=== PATIENT | female | born 1960 | race Two or more races ===

== ENCOUNTER 2024-05-28 07:30 | Day surgery (SDC) | payer MEDICAID, SELFPAY ==
[2024-05-28] VITALS (12 sets, daily range): BP systolic 136–198; BP diastolic 51–91; PULSE 61–80; RESP 15–20; TEMP 36.5–36.6; O2SAT 92–100; BMI 35.2
--- NOTE | 2024-05-28 09:43 | SUR.PHASEII ---
0943: Pt. AAOx4, vitals stable, breathing unlabored, no complaint of pain or nausea, no dressing in place, no active bleed noted, report received from Cira MCCLENDON.
--- NOTE | 2024-05-28 10:14 | SUR.PHASEII ---
1014: Pt. AAOx4, vitals stable, breathing unlabored, no complaint of pain or nausea, no dressing in place, no active bleed noted, pt. able to pass gas, pt. tolerated sips of water well, gave discharge instructions to the pt. and her ride using die repairer trimmer dies both verbalized understanding and had no further questions. Pt. left with all personal belongings.
== END 2024-05-28 10:14 | disposition home or self-care (01) ==
PROVIDERS: PCP Family Medicine; Referring Provider Surgery; Visit Provider Surgery
PROC: 0DJD8ZZ Inspection of Lower Intestinal Tract, Via Natural or Artificial Opening Endoscopic (ICD-10-PCS; CPT 45378; principal; 2024-05-28 12:15)
DX: Z12.11 Encounter for screening for malignant neoplasm of colon (principal)
CPT/HCPCS: 45378; J1200; J2250; J3010